=== PATIENT | male | born 2000 | race Caucasian/White ===

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

== ENCOUNTER → 2018-01-07 19:10 | Emergency (ER) | payer OTHER ==
[2018-01-07 19:16] VITALS: BP 154/94
== END | disposition left against medical advice (07) ==
LOC: ED 19:10
DX: Z02.83 Encounter for blood-alcohol and blood-drug test (principal)
CPT/HCPCS: 99282

== ENCOUNTER 2018-03-12 17:03 | Inpatient (IN) | payer OTHER ==
[2018-03-12 17:49] LABS: ABS Basophils 0.1 10^3/ul (0-0.2); ABS Eosinophils 0.1 10^3/ul (0-0.6); ABS Lymphocytes 3.9 10^3/ul (1.0-4.8); ABS Monocytes 1.3 10^3/ul (0-0.8); ABS Neutrophils 8.1 10^3/ul (1.5-7.7); ABS Nucleated RBC 0 10^3/ul; Hematocrit 37 % (42-52); Hemoglobin 12.3 g/dl (14.0-18.0); Lymphocyte % 28.9 % (25-47); Mean Corpuscular HGB Conc 33 g/dl (31-36); Mean Corpuscular Hemoglobin 27 pg (27-31); Mean Corpuscular Volume 82 fL (80-94); Mean Platelet Volume 7.3 um3 (7.4-10.4); Nucleated Red Blood Cells % 0.1; Platelet Count 310 10^3/ul (150-450); Red Cell Distribution Width 14 % (10.5-15); White Blood Count 13.5 10^3/ul (3.5-10.8)
--- NOTE | 2018-03-12 21:50 | ED ---
Psychiatric Complaint - HPI Summary HPI Summary: This patient is a 18 year old M presenting to [facility] with a chief complaint of SI/substance abuse since 03/10/18. Pt was an IV heroin and IV meth user for 4.5 to 5 years, but was clean for the past 2 months. Within last the last 2 days he relapsed and has been using both drugs. His mother told police he was threatening to kill himself, but he denies HI, SI; he told his parents that he would "hurt himself, but not kill himself". He denies hallucinations, CP, and fever. PMHx anxiety rx Xanax, reach clinic 1-2 a week for rx suboxone. Pt denies EtOH use, endorses smoking, and endorses occasional marijuana use. This pt lives with his mother. - History Of Current Complaint Chief Complaint: EDMentalHealth Time Seen by Provider: 03/12/18 17:31 Hx Obtained From: Patient Onset/Duration: Sudden Onset Timing: Constant Severity Initially: Moderate Severity Currently: Mild Aggravating Factor(s): Recent Stress - relapsing, Drug Use - Meth and heroin, both IV Alleviating Factor(s): Nothing Has Suicidal: Reports: Thoughts - He denies, others endorse Has Homicidal: Denies: Thoughts Recent Stressor(s): relapse - Allergies/Home Medications Allergies/Adverse Reactions: Allergies Allergy/AdvReac Type Severity Reaction Status Date / Time bee venom protein (honey bee) Allergy Hives Verified 01/07/18 19:55 Home Medications: Home Medications Buprenorphine HCl/Naloxone HCl [Suboxone] 1 film SL DAILY 03/12/18 [History Confirmed 03/12/18] Escitalopram (NF) [Lexapro 20 mg (NF)] 20 mg PO DAILY 03/12/18 [History Confirmed 03/12/18] PMH/Surg Hx/FS Hx/Imm Hx Endocrine/Hematology History: Denies: Hx Diabetes, Hx Thyroid Disease Cardiovascular History: Denies: Hx Hypertension Respiratory History: Denies: Hx Asthma, Hx Chronic Obstructive Pulmonary Disease (COPD) GI History: Denies: Hx Ulcer Sensory History: Denies: Hx Legally Blind, Hx Deafness Opthamlomology History: Denies: Hx Legally Blind EENT History: Denies: Hx Deafness Neurological History: Denies: Hx Dementia Psychiatric History: Reports: Hx Anxiety, Hx Depression Denies: Hx Eating Disorder, Hx of Violent Episodes Against Others - Surgical History Surgery Procedure, Year, and Place: DENTAL Infectious Disease History: No Infectious Disease History: Denies: Hx Hepatitis, Hx Human Immunodeficiency Virus (HIV), History Other Infectious Disease, Traveled Outside the [place] in Last 30 Days - Family History Known Family History: Negative: Respiratory Disease - Social History Occupation: Employed Full-time Lives: With Family Alcohol Use: None Substance Use Type: Reports: Heroin, Marijuana Smoking Status (MU): Heavy Every Day Tobacco Smoker Have You Smoked in the Last Year: No Review of Systems Negative: Fever, Chills Negative: Erythema Negative: Sore Throat Negative: Chest Pain Negative: Shortness Of Breath, Cough Negative: Abdominal Pain, Vomiting, Nausea Negative: dysuria, flank pain Negative: Myalgia, Edema Positive: Other - diffuse scabs and abrasions. Negative: Rash Neurological: Other - NEGATIVE: Dizziness Positive: Depressed, Other - SIB All Other Systems Reviewed And Are Negative: Yes Physical Exam - Summary Physical Exam Summary: Constitutional: Well-developed, Well-nourished, Alert. (-) Distressed Skin: Warm, Dry. Multiple meth scabs on his face and posterior neck HENT: Normocephalic; Atraumatic Eyes: Conjunctiva normal Neck: Musculoskeletal ROM normal neck. (-) JVD, (-) Stridor, (-) Tracheal deviation Cardio: Rhythm regular, rate normal, Heart sounds normal; Intact distal pulses; The pedal pulses are 2+ and symmetric. Radial pulses are 2+ and symmetric. (-) Murmur Pulmonary/Chest wall: Effort normal. (-) Respiratory distress, (-) Wheezes, (-) Rales Abd: Soft, (-) epigastric tenderness, (-) Distension, (-) Guarding, (-) Rebound Musculoskeletal: (-) Edema Lymph: (-) Cervical adenopathy Neuro: Alert, Oriented x3 Psych: Mood and affect Normal Triage Information Reviewed: Yes Vital Signs On Initial Exam: Initial Vitals Temp Pulse Resp BP Pulse Ox 98.2 F 89 17 106/64 98 03/12/18 17:20 03/12/18 17:20 03/12/18 17:20 03/12/18 17:20 03/12/18 17:20 Vital Signs Reviewed: Yes Diagnostics - Vital Signs Vital Signs Temp Pulse Resp BP Pulse Ox 03/12/18 19:00 85 29 99 03/12/18 18:00 68 23 97 03/12/18 17:36 96 13 127/80 98 03/12/18 17:35 26 03/12/18 17:20 98.2 F 89 17 106/64 98 - Laboratory Lab Results: Lab Results 03/12/18 03/12/18 Range/Units 17:40 17:40 WBC 13.5 H (3.5-10.8) 10^3/ul RBC 4.50 (4.00-5.40) 10^6/ul Hgb 12.3 L (14.0-18.0) g/dl Hct 37 L (42-52) % MCV 82 (80-94) fL MCH 27 (27-31) pg MCHC 33 (31-36) g/dl RDW 14 (10.5-15) % Plt Count 310 (150-450) 10^3/ul MPV 7.3 L (7.4-10.4) um3 Neut % (Auto) 60.3 (38-83) % Lymph % (Auto) 28.9 (25-47) % [place] % (Auto) 9.3 H (0-7) % Eos % (Auto) 1.0 (0-6) % Baso % (Auto) 0.5 (0-2) % Absolute Neuts (auto) 8.1 H (1.5-7.7) 10^3/ul Absolute Lymphs (auto) 3.9 (1.0-4.8) 10^3/ul Absolute Monos (auto) 1.3 H (0-0.8) 10^3/ul Absolute Eos (auto) 0.1 (0-0.6) 10^3/ul Absolute Basos (auto) 0.1 (0-0.2) 10^3/ul Absolute Nucleated RBC 0 10^3/ul Nucleated RBC % 0.1 Sodium 135 (135-145) mmol/L Potassium 4.0 (3.5-5.0) mmol/L Chloride 102 (101-111) mmol/L Carbon Dioxide 29 (22-32) mmol/L Anion Gap 4 (2-11) mmol/L BUN 19 (6-24) mg/dL Creatinine 0.89 (0.67-1.17) mg/dL Est GFR ( Amer) 131.9 (>60) Est GFR (Non-Af Amer) 109.0 (>60) BUN/Creatinine Ratio 21.3 H (8-20) Glucose 89 (70-100) mg/dL Calcium 9.2 (8.6-10.3) mg/dL Total Bilirubin 0.40 (0.2-1.0) mg/dL AST 36 (13-39) U/L ALT 33 (7-52) U/L Alkaline Phosphatase 101 (34-104) U/L Total Protein 7.0 (6.4-8.9) g/dL Albumin 3.9 (3.2-5.2) g/dL Globulin 3.1 (2-4) g/dL Albumin/Globulin Ratio 1.3 (1-3) TSH 3.12 (0.34-5.60) mcIU/mL Salicylates < 2.50 (<30) mg/dL Acetaminophen < 15 mcg/mL Serum Alcohol < 10 (<10) mg/dL Result Diagrams: 03/12/18 17:40 03/12/18 17:40 Lab Statement: Any lab studies that have been ordered have been reviewed, and results considered in the medical decision making process. Course/Dx - Course Course Of Treatment: A 18-year-old M presents to the ED with a CC of SIB/ relapse since 2 days ago. (+) SI per mother. (-) he denies SI/HI, hallucinations , CP, and fever. Pt is an addict of meth and heroin, both used IV for nearly 5 years. He was clean for 2 months until 2 days ago when he relapsed. His mother called the police because the pt said he would hurt himself. Pt's labs show abnl WBC, H&H, MVC, mono %, abs neuts, and abs monos. - Differential Dx/Clinical Impression Provider Diagnosis: Suicidal ideation - Physician Notifications Discussed Care Of Patient With: Pepe Hilton Time Discussed With Above Provider: 22:01 Instructed by Provider To: Other - Pt will be admitted on involuntary status with a dx of SI. Discharge - Sign-Out/Discharge Documenting (check all that apply): Patient Departure - admit - Discharge Plan Condition: Fair Disposition: PSYCHIATRIC FACILITY-[facility] [place] Referrals: Andrea Galvan MD [Primary Care Provider] - - Attestation Statements Document Initiated by Scribe: Yes Documenting Scribe: Juan C Bautista Provider For Whom Scribe is Documenting (Include Credential): Dr. Pedro Early MD Scribe Attestation: Juan C Chris, scribed for Dr. Pedro Early MD on 03/12/18 at 2208.
[2018-03-12 22:51] LABS: Urine Appearance Clear; Urine Blood Negative (Negative); Urine Color Straw; Urine Ketones Negative (Negative); Urine Protein Negative (Negative); Urine Specific Gravity 1.006 (1.010-1.030); Urine Urobilinogen Negative (Negative)
[2018-03-13] MEDS ORDERED: Acetaminophen TAB* 325 MG PO PRN (03:19)
[2018-03-13] MEDS ORDERED: Al Hydrox/Mg Hydrox/Simet LIQ* 30 ML UDC PO PRN (03:19)
[2018-03-13] MEDS ORDERED: Mouth Piece, Nicotine* 1 EACH CARTRIDGE INH SCH (03:19)
[2018-03-13] MEDS ORDERED: Nicotine GUM* 2 MG PO PRN (03:19)
[2018-03-13] MEDS: Vitamin THERAPEUTIC TAB PO SCH (11:04)
[2018-03-13] MEDS ORDERED: hydrOXYzine HCL TAB* 50 MG PO PRN (12:31)
--- NOTE | 2018-03-13 14:12 | HP ---
H&P (Free Text) History and Physical: JUSTIFICATION FOR ADMISSION: Patient presented to emergency room with suicidal ideation, worsening depression and substance abuse. He requires inpatient psychiatric admission in order to provide treatment and stabilization as he is a danger to himself. CHIEF COMPLAINT: "I have been depressed after my friend but I will not kill myself SOURCE OF INFORMATION: Chart, patient HISTORY OF THE PRESENT ILLNESS: Patient is a 18 y/o male, single, living by himself in a camper, employed as a bonilla, with history of anxiety disorder and substance abuse. Patient was admitted to inpatient unit for worsening of depression, emotional dysregulation , and sleep disturbance leading to relapse. Patient relapsed on Heroin and Methamphetamine and also forged a check from his [employer] company. Patient rationalizes that he was not being paid for some time despite of him working at the [employer]. Patients Boss called police and when police came to get him he ran in the dark to [place] and said "I might as well kill myself and be done with this mess. Patient was compliant with his medications until a week ago and has been abusing drugs likely since then and relapsed after 2 months of sobriety. Patient reportedly filled his Suboxone of 12-3 mg a day on 03/06/18 for 14 days but stated that he has not used it for about a week ago. Patient last dose of Heroin was yesterday and Amphetamine day before that. Patient reportedly has been struggling with his abstinence every 1-2 months where he relapses but sometimes is able to get back on track towards sobriety. But this time he was unable to stop due to the level of his emotional pain. Patient reported no manic or psychotic symptoms other than when under influence of substances. Patient denied any suicidal or homicidal ideation on the unit, feels safe in the hospital agree to go to a rehab. Patient continued to exhibit behavior that is in control and cooperative with staff. PAST PSYCHIATRIC HISTORY: Patient reports no history of inpatient psychiatric hospitalization but do report having inpatient rehab of 28 days more than a year ago and was able to keep sobriety for 3 months following that. Patient reports periods of sobriety that will last for about a month or two with relapse and then will recover after couple of day. Patient reports attending AA meeting and has been going to [facility] for substance use treatment and anxiety. Patient reports getting Suboxone 12-3mg daily and Lexapro 20 mg a day (anxiety and depression). Patient has history of suicidal thoughts but no attempt or plan. Patient has no history of homicidal threats, intent or attempt. Patient reports no history of aggressive and agitated behavior when decompensates. Patient reports he does not have access to firearm as they are his fathers and his father has the possession. Although documentation in ED reports that he has 2 firearms. Patient has two legal charges for which he has to appear in court next week. SUBSTANCE ABUSE HISTORY: Patient started using in his late teenage years. Patient started with Cocaine then Methamphetamine and Opioids. Patient uses Heroin and Amphetamine. Patient reports using Amphetamine 3x this year and last use was about 2 days ago. Patient also reports history of using IV Heroin unspecified amount since relapse and last use was yesterday. Urine toxicology was positive for amphetamine and opioid. Patient has been in both inpatient and outpatient treatment for drugs. Patient reports smoking 1 PPD of tobacco. PAST MEDICAL HISTORY: No active medical problems other than skin lesions due to substance abuse ALLERGIES: Bee Venom FAMILY PSYCHIATRIC HISTORY: Patient reports having history of Depression in his mother. Denies any other illness or substance abuse in family. No reported suicide in the family. As per records patient has documented history in family of alcohol use and Bipolar Disorder. FAMILY/PSYCHOSOCIAL HISTORY: Patient currently lives by himself in a camper. Patient is not . Patient has no children. Patient education level is a year in College with major of Biotechnology. Patient was raised by his mother growing up father had limited involvement in his up bringing as per patient. Patient reports that he has estranged relationship with his father and gets into argument with him every time they meet. Patient has 2 other sibling sisters that are are nurses as per patient. Patient support system includes mother that he feels is very strict but in a "reasonable way" and his friends. REVIEW OF SYSTEMS: Patients review of symptoms was negative for any physical complaint. Patients vital signs were reviewed and has some high blood pressure likely due to withdrawal from opioids. Patients ED physical exam was reviewed which is grossly normal with no active medical problem. Physical Exam Summary: Constitutional: Well-developed, Well-nourished, Alert. (-) Distressed Skin: Warm, Dry. Multiple meth scabs on his face and posterior neck HENT: Normocephalic; Atraumatic Eyes: Conjunctiva normal Neck: Musculoskeletal ROM normal neck. (-) JVD, (-) Stridor, (-) Tracheal deviation Cardio: Rhythm regular, rate normal, Heart sounds normal; Intact distal pulses; The pedal pulses are 2+ and symmetric. Radial pulses are 2+ and symmetric. (-) Murmur Pulmonary/Chest wall: Effort normal. (-) Respiratory distress, (-) Wheezes, (-) Rales Abd: Soft, (-) epigastric tenderness, (-) Distension, (-) Guarding, (-) Rebound Musculoskeletal: (-) Edema Lymph: (-) Cervical adenopathy Neuro: Alert, Oriented x3 MENTAL STATUS EXAMINATION: Appearance: Patient is a 18 y/o young male, appear stated age, multiple methamphetamine related skin sores and mites over his face, neck and arm, making limited eye contact, poor hygiene and grooming. Behavior: in fair control in the hospital Gait: normal Abnormal motor activity: none Speech: normal rate and rhythm, anxious pauses, normal tone and volume Mood: emotional Affect: Dysphoric, constricted Thought process: coherent to circumstantial Thought Content: Suicidal/Homicidal ideation: denied at the time of evaluation but as per recent evidence made suicidal statements Delusions: none Obsessions: none Phobia: none Perceptual disturbance: none Attention: fair Orientation: grossly intact Concentration: limited Memory: fair Insight: poor Judgment: poor Impulse control: poor IMPRESSION: Patient with history of Substance Use Disorder, Depression and anxiety. Patient currently admitted due to worsening of his depression, relapse on substance abuse including heroin and methamphetamine. Patient has also struggled with recent loss of his friend that has likely triggered relapse. Patient is a danger to self and others if discharged hence will be stabilized on inpatient unit with medication adjustments and therapy. DIAGNOSES: Depressive Disorder unspecified, Anxiety Disorder unspecified, Opioid Use Disorder, Methamphetamine abuse Prov: Adjustment Disorder, Major depression, Substance Induced Depression and anxiety PLAN: Admit to [facility] on Q 15 min observation. Patient is full code. Patient is on involuntary admission status Integrate patient into the milieu Individual and group psychotherapy Social work consult for therapy and discharge planning Patient gave informed consent to start the following medications: Patients was started back on Suboxone but at a low dose 4-2 mg a day with plan to follow up with cravings and urges of opioids. Patient was also started on Remeron 15 mg PO QHS to help with depression and anxiety. Will obtain baseline lipid profile. Will file for [facility] while patient in the hospital with further collateral. Also continue with Hydroxyzine 50 mg Q6HRS PRN for anxiety and Tylenol for Pain. Will continue to monitor and f/u for improvement and side effects. Arlene Lerma MD Attending Psychiatrist
[2018-03-13] MEDS: Buprenorphine/Naloxone 8-2 MG SL TAB* 1 TAB PO SCH (15:12)
[2018-03-13] MEDS: Nicotine Inhaler* 10 MG AMP INH PRN ×2 (15:13→21:57)
[2018-03-13] MEDS: Bacitracin OINTMENT* 0.5% 0.5 oz TUBE TOPICAL SCH (21:56)
[2018-03-13] MEDS: Mirtazapine TAB* 15 MG PO SCH (21:56)
[2018-03-14] MEDS: Buprenorphine/Naloxone 8-2 MG SL TAB* 1 TAB PO SCH (10:47)
[2018-03-14] MEDS: Vitamin THERAPEUTIC TAB PO SCH (10:48)
[2018-03-14] MEDS: Bacitracin OINTMENT* 0.5% 0.5 oz TUBE TOPICAL SCH ×2 (10:48→22:44)
--- NOTE | 2018-03-14 11:01 | PN ---
Subjective - Subjective Date of Service: 03/14/18 Service Type: [id number] Hosp care 15 min low complexity Subjective: Patient was seen by self, discussed with treatment team, chart was reviewed. Patient has been compliant with his medications, no reported side effects. Patient reports limited improvement in his craving, urges and withdrawal related symptoms from opioids. Patient endorsed continued feeling depressed, isolateive and withdrawn wiht limited interest in things around him. Patient adamantly denies any suicidal ideation symptoms and is also in denial of making any statement before hospitalization as well. Patient sleeping has been disturbed and got only about 4 hours last night. Patient eating has been fair. Patient has been cooperative with staff. Patient behavior has been in control. Patient mood continued to be anxious and dysphoric and requested increment in Suboxone. Patient has been reporting no homicidal ideation. No psychotic symptoms of delusions or hallucinations. Patient talked about his interest in [facility] some where in [place] and will be educated by psychosocial rehabilitation counselor on all practical options available. Patient was ambivalent and also focused on his discharge planning and how "quick can I be discharged". Objective - Appearance Appearance: Other - face and extremeties occupied with sore from meth and going through some withdrawal Dysmorphic Features: No Hygiene: Normal Grooming: Disheveled - Behavior Psychomotor Activities: Abnormal-Increased Exhibits Abnormal Movement: No - Attitude and Relatedness Attitude and Relatedness: Superficially Cooperative Eye Contact: Fair - Speech Quality: Unpressured Latencies: Normal Quantity: Terse - Mood Patient's Decription of Mood: "Anxious" - Affect Observed Affect: Depressed Affect Consistent with: Dysphoria - Thought Process Patient's Thought Process: Goal Directed Thought Content: Yes Passive Wish - and occupied with discharge planning and his admission status, No Suicidal Planning, No Homicidal Ideation, No Paranoid Ideation - Sensorium Experiencing Hallucinations: No, Sensorium is Clear Type of Hallucinations: Visual: No, Auditory: No, Command: No - Level of Consciousness Level of Consciousness: Alert Orientation: Yes Intact, Yes Orientated to Time, Yes Orientated to Place, Yes Orientated to Person - Impulse Control Impulse Control: Intact - Insight and Judgement Insight and Judgement: Fair - Group Participation Particating in Group Activities: No - Medication Management Medication Management Adherence: Yes Assessment - Assessment Merits Inpatient Hospitalization: For Immediate Safety, For Stabilization, For Discharge Planning Inpatient DSM-V Dx: F33.8 Clinical Impression: Patient with history of Substance Use Disorder, Depression and anxiety. Patient currently admitted due to worsening of his depression, relapse on substance abuse including heroin and methamphetamine. Patient has also struggled with recent loss of his friend that has likely triggered relapse. Patient is a danger to self and others if discharged hence will be stabilized on inpatient unit with medication adjustments and therapy. Plan - Plan Treatment Plan: Name: AYAKA SNOWDEN Birthdate: 2000 [id number] - Patient continues to be hospitalized due to recent suicidal thoughts, mood instability, depression, anxiety and impulsivity and relapse on substance abuse. - Patient's medications were adjusted after informed consent with increment of Suboxone to 8 mg a day with intent to increase to 12 mg a day which was his outpatient dose as needed and tolerated. Patient will be continued on Remeron 15 mg PO HS fro depression and sleep. Patient also educated about sleep hygiene. Patient has PRN Hydroxyzine to help with anxiety and sleep. - Patient will be monitored for improvement and side effects. Risk and benefits were discussed. - Patient was encouraged to continue his participation in the milieu, group and individual therapy. Medications: Current Medications Acetaminophen (Tylenol Tab*) 650 mg PO Q4H PRN PRN Reason: PAIN or TEMP > 101 F Al Hydrox/Mg Hydrox/Simethicone (Maalox Plus*) 30 ml PO Q4H PRN PRN Reason: INDIGESTION Bacitracin (Bacitracin Ointment*) 1 applic TOPICAL BID [facility] Last Admin: 03/14/18 10:48 Dose: Not Given Buprenorphine/Naloxone (Suboxone 8-2 Mg Sl Tab*) 0.5 tab.sl PO DAILY [facility] Last Admin: 03/14/18 10:47 Dose: 0.5 tab.sl Device (Nicotine Mouth Piece*) 1 each INH .[facility] Hydroxyzine HCl (Atarax Tab*) 50 mg PO Q6H PRN PRN Reason: ANXIETY Mirtazapine (Remeron Tab*) 15 mg PO BEDTIME [facility] Last Admin: 03/13/18 21:56 Dose: 15 mg Multivitamins (Theragran Tab*) 1 tab PO DAILY [facility] Last Admin: 03/14/18 10:48 Dose: 1 tab Nicotine (Nicotine Inhaler*) 10 mg INH Q2H PRN PRN Reason: CRAVING Last Admin: 09/27/18 21:57 Dose: 10 mg Nicotine Polacrilex (Nicotine Gum*) 2 mg PO Q2H PRN PRN Reason: CRAVING
[2018-03-14] MEDS ORDERED: Buprenorphine/Naloxone 8-2 MG SL TAB* 1 TAB PO ONE ×2 (11:27→20:00)
[2018-03-14] MEDS: Mirtazapine TAB* 15 MG PO SCH (20:25)
[2018-03-15] MEDS: Vitamin THERAPEUTIC TAB PO SCH (09:39)
[2018-03-15] MEDS: Buprenorphine/Naloxone 8-2 MG SL TAB* 1 TAB PO SCH (09:39)
[2018-03-15] MEDS: Bacitracin OINTMENT* 0.5% 0.5 oz TUBE TOPICAL SCH ×2 (09:39→19:51)
--- NOTE | 2018-03-15 13:36 | PN ---
Subjective - Subjective Date of Service: 03/15/18 Service Type: [id number] Hosp care 15 min low complexity Subjective: Ricky is seen in weekend coverage for Dr. Lerma. He denies SI and is feeling more comfortable since the resumption of buprenorphine therapy. He continues to have difficulty sleeping though and requests an increase in prn hydroxyzine for this issue. As per staff, he has been calm and adherent with unit expectations and they feel he would be safe receiving enhanced privileges, such as use of the computer and staff pass, which he is requesting. He presents as polite and cooperative. Objective - Appearance Appearance: Well Developed/Nourished Dysmorphic Features: No Hygiene: Normal Grooming: Well Kept - Behavior Psychomotor Activities: Normal Exhibits Abnormal Movement: No - Attitude and Relatedness Attitude and Relatedness: Cooperative Eye Contact: Fair - Speech Quality: Unpressured Latencies: Normal Quantity: Appropriate - Mood Patient's Decription of Mood: "Okay" - Affect Observed Affect: Fair Affect Consistent with: Euthymia - Thought Process Patient's Thought Process: Coherent Thought Content: No Passive Wish, No Suicidal Planning, No Homicidal Ideation, No Paranoid Ideation - Sensorium Experiencing Hallucinations: No, Sensorium is Clear Type of Hallucinations: Visual: No, Auditory: No, Command: No - Level of Consciousness Level of Consciousness: Alert Orientation: Yes Intact, Yes Orientated to Time, Yes Orientated to Place, Yes Orientated to Person - Impulse Control Impulse Control: Tenuous - Insight and Judgement Insight and Judgement: Fair - Group Participation Particating in Group Activities: Yes - Medication Management Medication Management Adherence: Yes Assessment - Assessment Merits Inpatient Hospitalization: Consolidate Improvements, Pending Safe DC Plan Inpatient DSM-V Dx: F33.8 Clinical Impression: Patient with history of Substance Use Disorder, Depression and anxiety. Patient currently admitted due to worsening of his depression, relapse on substance abuse including heroin and methamphetamine. Patient has also struggled with recent loss of his friend that has likely triggered relapse. Patient is a danger to self and others if discharged hence will be stabilized on inpatient unit with medication adjustments and therapy. Plan - Plan Treatment Plan: Name: AYAKA SNOWDEN Birthdate: 2000 [id number] The patient is on buprenorphine/naloxone 8/2mg SL qday, as well as mirtazapine 15mg PO qhs. He appears to be improving. Continue inpatient level care and encourage consideration for substance abuse treatment after discharge. Continued Medication Management: Start Medication Medications: Current Medications Acetaminophen (Tylenol Tab*) 650 mg PO Q4H PRN PRN Reason: PAIN or TEMP > 101 F Al Hydrox/Mg Hydrox/Simethicone (Maalox Plus*) 30 ml PO Q4H PRN PRN Reason: INDIGESTION Bacitracin (Bacitracin Ointment*) 1 applic TOPICAL BID [facility] Last Admin: 03/15/18 09:39 Dose: Not Given Buprenorphine/Naloxone (Suboxone 8-2 Mg Sl Tab*) 1 tab.sl PO DAILY [facility] Last Admin: 03/15/18 09:39 Dose: 1 tab.sl Device (Nicotine Mouth Piece*) 1 each INH .[facility] Hydroxyzine HCl (Atarax Tab*) 75 mg PO Q6H PRN PRN Reason: ANXIETY Mirtazapine (Remeron Tab*) 15 mg PO BEDTIME [facility] Last Admin: 03/14/18 20:25 Dose: 15 mg Multivitamins (Theragran Tab*) 1 tab PO DAILY [facility] Last Admin: 03/15/18 09:39 Dose: 1 tab Nicotine (Nicotine Inhaler*) 10 mg INH Q2H PRN PRN Reason: CRAVING Last Admin: 03/13/18 21:57 Dose: 10 mg Nicotine Polacrilex (Nicotine Gum*) 2 mg PO Q2H PRN PRN Reason: CRAVING - Discharge Plan Discharge Plan: Inpatient Hospitalization Lab Results - Lab Results Lab Results: 03/12/18 03/12/18 03/12/18 17:40 17:40 22:30 WBC 13.5 H RBC 4.50 Hgb 12.3 L Hct 37 L MCV 82 MCH 27 MCHC 33 RDW 14 Plt Count 310 MPV 7.3 L Neut % (Auto) 60.3 Lymph % (Auto) 28.9 [place] % (Auto) 9.3 H Eos % (Auto) 1.0 Baso % (Auto) 0.5 Absolute Neuts (auto) 8.1 H Absolute Lymphs (auto) 3.9 Absolute Monos (auto) 1.3 H Absolute Eos (auto) 0.1 Absolute Basos (auto) 0.1 Absolute Nucleated RBC 0 Nucleated RBC % 0.1 Sodium 135 Potassium 4.0 Chloride 102 Carbon Dioxide 29 Anion Gap 4 BUN 19 Creatinine 0.89 Est GFR ( Amer) 131.9 Est GFR (Non-Af Amer) 109.0 BUN/Creatinine Ratio 21.3 H Glucose 89 Hemoglobin A1c Calcium 9.2 Total Bilirubin 0.40 AST 36 ALT 33 Alkaline Phosphatase 101 Total Protein 7.0 Albumin 3.9 Globulin 3.1 Albumin/Globulin Ratio 1.3 Triglycerides Cholesterol LDL Cholesterol HDL Cholesterol TSH 3.12 Urine Color Straw Urine Appearance Clear Urine pH 6.0 Ur Specific [place] 1.006 L Urine Protein Negative Urine Ketones Negative Urine Blood Negative Urine Nitrate Negative Urine Bilirubin Negative Urine Urobilinogen Negative Ur Leukocyte Esterase Negative Urine Glucose Negative Salicylates < 2.50 Urine Opiates Screen Acetaminophen < 15 Ur Barbiturates Screen Ur Phencyclidine Scrn Ur Amphetamines Screen U Benzodiazepines Scrn Urine Cocaine Screen U Cannabinoids Screen Serum Alcohol < 10 03/12/18 03/14/18 03/14/18 22:30 07:44 07:44 WBC RBC Hgb Hct MCV MCH MCHC RDW Plt Count MPV Neut % (Auto) Lymph % (Auto) [place] % (Auto) Eos % (Auto) Baso % (Auto) Absolute Neuts (auto) Absolute Lymphs (auto) Absolute Monos (auto) Absolute Eos (auto) Absolute Basos (auto) Absolute Nucleated RBC Nucleated RBC % Sodium Potassium Chloride Carbon Dioxide Anion Gap BUN Creatinine Est GFR ( Amer) Est GFR (Non-Af Amer) BUN/Creatinine Ratio Glucose Hemoglobin A1c 5.6 Calcium Total Bilirubin AST ALT Alkaline Phosphatase Total Protein Albumin Globulin Albumin/Globulin Ratio Triglycerides 79 Cholesterol 165 LDL Cholesterol 106 HDL Cholesterol 43.4 TSH Urine Color Urine Appearance Urine pH Ur Specific [place] Urine Protein Urine Ketones Urine Blood Urine Nitrate Urine Bilirubin Urine Urobilinogen Ur Leukocyte Esterase Urine Glucose Salicylates Urine Opiates Screen Presumptive positive A Acetaminophen Ur Barbiturates Screen None detected Ur Phencyclidine Scrn None detected Ur Amphetamines Screen Presumptive positive A U Benzodiazepines Scrn None detected Urine Cocaine Screen None detected U Cannabinoids Screen None detected Serum Alcohol
[2018-03-15] MEDS: Nicotine Inhaler* 10 MG AMP INH PRN (19:49)
[2018-03-15] MEDS: Mirtazapine TAB* 15 MG PO SCH (20:17)
[2018-03-16] MEDS: Vitamin THERAPEUTIC TAB PO SCH (09:34)
[2018-03-16] MEDS: Bacitracin OINTMENT* 0.5% 0.5 oz TUBE TOPICAL SCH ×2 (09:34→21:08)
[2018-03-16] MEDS: Buprenorphine/Naloxone 8-2 MG SL TAB* 1 TAB PO SCH (09:34)
[2018-03-16] MEDS: Mirtazapine TAB* 15 MG PO SCH (20:16)
[2018-03-17] MEDS: Vitamin THERAPEUTIC TAB PO SCH (09:37)
[2018-03-17] MEDS: Bacitracin OINTMENT* 0.5% 0.5 oz TUBE TOPICAL SCH ×2 (09:37→20:23)
[2018-03-17] MEDS: Buprenorphine/Naloxone 8-2 MG SL TAB* 1 TAB PO SCH (09:38)
[2018-03-17] MEDS ORDERED: Buprenorphine TAB* 2 MG TAB.SL SL ONE (10:51)
--- NOTE | 2018-03-17 11:00 | PN ---
Subjective - Subjective Date of Service: 03/17/18 Service Type: 20070 Hosp care 15 min low complexity Subjective: Patient was seen by self, discussed with treatment team, chart was reviewed. Patient has been compliant with his medications other than he refused to take Suboxone yesterday and stated that he wants to "do it and go to rehab". Patient reports no reported side effects but appears to be in some what of withdrawal and offered low dose Buprenorphine one time today. Patient is attending therapy and participating in milieu and more out of room than before. Patient endorsed continued disturbance in sleep and fluctuating depression and anxiety, less isolative and seclusive. Patient denies any suicidal ideation and behavior has been safe on all checks. Patient eating has been fair. Patient has been cooperative with staff. Patient behavior has been in control. Patient mood continued to be anxious but less dysphoric. Patient has been reporting no homicidal ideation. No psychotic symptoms of delusions or hallucinations. Patient talked about his interest in going to inpatient rehab and is working with social sciences research scientist on that referral. Patient is motivated about his treatment. Objective - Appearance Appearance: Healthy Appearing Dysmorphic Features: No Hygiene: Normal - improving facial meth sores Grooming: Fairly Well Kept - Behavior Psychomotor Activities: Normal Exhibits Abnormal Movement: No - Attitude and Relatedness Attitude and Relatedness: Cooperative Eye Contact: Fair - Speech Quality: Unpressured Latencies: Normal Quantity: Appropriate - Mood Patient's Decription of Mood: "Anxious" - Affect Observed Affect: Tense Affect Consistent with: Dysphoria - less - Thought Process Patient's Thought Process: Coherent, Circumstantial Thought Content: No Passive Wish, No Suicidal Planning, No Homicidal Ideation, No Paranoid Ideation - Sensorium Experiencing Hallucinations: No, Sensorium is Clear Type of Hallucinations: Visual: No, Auditory: No, Command: No - Level of Consciousness Level of Consciousness: Alert Orientation: Yes Intact, Yes Orientated to Time, Yes Orientated to Place, Yes Orientated to Person - Impulse Control Impulse Control: Poor - but improving - Insight and Judgement Insight and Judgement: Fair - Group Participation Particating in Group Activities: Yes - Medication Management Medication Management Adherence: Yes Assessment - Assessment Merits Inpatient Hospitalization: For Immediate Safety, For Stabilization, For Discharge Planning Inpatient DSM-V Dx: F33.8 Clinical Impression: Patient with history of Substance Use Disorder, Depression and anxiety. Patient currently admitted due to worsening of his depression, relapse on substance abuse including heroin and methamphetamine. Patient has also struggled with recent loss of his friend that has likely triggered relapse. Patient is a danger to self and others if discharged hence will be stabilized on inpatient unit with medication adjustments and therapy. Plan - Plan Treatment Plan: Name: AYAKA SNOWDEN Birthdate: 2000 [id number] - Patient continues to be hospitalized due to recent suicidal thoughts, mood instability, depression, anxiety and impulsivity and relapse on substance abuse. - Patient's medications were adjusted was offered one dose of Suboxone 2 mg. Patient Remeron was increased to 30 mg PO HS for depression. anxiety and sleep. Patient also educated about sleep hygiene. Patient has PRN Hydroxyzine to help with anxiety and sleep. - Patient will be monitored for improvement and side effects. Risk and benefits were discussed. - Patient was encouraged to continue his participation in the milieu, group and individual therapy. Medications: Current Medications Acetaminophen (Tylenol Tab*) 650 mg PO Q4H PRN PRN Reason: PAIN or TEMP > 101 F Al Hydrox/Mg Hydrox/Simethicone (Maalox Plus*) 30 ml PO Q4H PRN PRN Reason: INDIGESTION Bacitracin (Bacitracin Ointment*) 1 applic TOPICAL BID [facility] Last Admin: 03/17/18 09:37 Dose: Not Given Buprenorphine HCl (Subutex Tab*) 2 mg SL ONCE ONE Stop: 03/17/18 10:52 Device (Nicotine Mouth Piece*) 1 each INH [facility] Hydroxyzine HCl (Atarax Tab*) 75 mg PO Q6H PRN PRN Reason: ANXIETY Mirtazapine (Remeron Tab*) 30 mg PO BEDTIME [facility] Multivitamins (Theragran Tab*) 1 tab PO DAILY [facility] Last Admin: 03/17/18 09:37 Dose: 1 tab Nicotine (Nicotine Inhaler*) 10 mg INH Q2H PRN PRN Reason: CRAVING Last Admin: 03/15/18 19:49 Dose: 10 mg Nicotine Polacrilex (Nicotine Gum*) 2 mg PO Q2H PRN PRN Reason: CRAVING
[2018-03-17] MEDS: hydrOXYzine HCL TAB* 25 MG PO PRN (20:23)
[2018-03-17] MEDS ORDERED: Mirtazapine TAB* 15 MG PO SCH (21:00)
[2018-03-18] MEDS: Vitamin THERAPEUTIC TAB PO SCH (10:33)
[2018-03-18] MEDS: Bacitracin OINTMENT* 0.5% 0.5 oz TUBE TOPICAL SCH ×2 (10:34→20:49)
--- NOTE | 2018-03-18 10:58 | PN ---
Subjective - Subjective Date of Service: 03/18/18 Service Type: [id number] Hosp care 15 min low complexity Subjective: Patient was seen by self, discussed with treatment team, chart was reviewed. Patient has been compliant with his medications. Patient reports worsening in racing thoughts after increment in Remeron and was unable to fall asleep. Patient was anxious and restless this morning but continues to report improvement in depression. Even though patient is willing to go to inpatient rehab but worries that if he would have to stay to long in the hospital for that. Patient was educated about acute treatment that is needed at the hospital before transferring him to inpatient rehab. Patient referrals has been made to inpatient rehab. about his Patient is attending therapy and participating in milieu and more out of room than before. Patient endorsed some improvement depression and anxiety, less isolative and seclusive. Patient denies any suicidal ideation and behavior has been safe on all checks. Patient eating has been fair. Patient has been cooperative with staff. Patient behavior has been in control. Patient mood continued to be anxious but less dysphoric. Patient has been reporting no homicidal ideation. No psychotic symptoms of delusions or hallucinations. Patient continues to show his interest in going to inpatient rehab to work on his substance abuse. Objective - Appearance Appearance: Healthy Appearing - improving meth sores Dysmorphic Features: No Hygiene: Normal Grooming: Fairly Well Kept - Behavior Psychomotor Activities: Abnormal-Increased Exhibits Abnormal Movement: No - Attitude and Relatedness Attitude and Relatedness: Cooperative Eye Contact: Fair - Speech Quality: Unpressured Latencies: Normal Quantity: Copious - Mood Patient's Decription of Mood: "Anxious" - Affect Observed Affect: Fair Affect Consistent with: Dysphoria - less - Thought Process Patient's Thought Process: Coherent, Circumstantial Thought Content: No Passive Wish, No Suicidal Planning, No Homicidal Ideation, No Paranoid Ideation - Sensorium Experiencing Hallucinations: No, Sensorium is Clear Type of Hallucinations: Visual: No, Auditory: No, Command: No - Level of Consciousness Orientation: Yes Intact, Yes Orientated to Time, Yes Orientated to Place, Yes Orientated to Person - Impulse Control Impulse Control: Impaired - but improving - Insight and Judgement Insight and Judgement: Impaired - but improving - Group Participation Particating in Group Activities: Yes - Medication Management Medication Management Adherence: Yes Assessment - Assessment Merits Inpatient Hospitalization: For Immediate Safety, For Stabilization, For Discharge Planning Inpatient DSM-V Dx: F33.8 Clinical Impression: Patient with history of Substance Use Disorder, Depression and anxiety. Patient currently admitted due to worsening of his depression, relapse on substance abuse including heroin and methamphetamine. Patient has also struggled with recent loss of his friend that has likely triggered relapse. Patient is a danger to self and others if discharged hence will be stabilized on inpatient unit with medication adjustments and therapy. Plan - Plan Treatment Plan: Name: AYAKA SNOWDEN Birthdate: 2000 [id number] - Patient continues to be hospitalized due to recent suicidal thoughts, mood instability, depression, anxiety and impulsivity and relapse on substance abuse. - Patient's medications were adjusted after informed consent with reduction in Remeron to 15 mg PO HS for depression. anxiety and sleep. Patient also educated about sleep hygiene and started on Seroquel 100 mg HS to address sleep and racing thoughts. Patient has PRN Hydroxyzine to help with anxiety and sleep. Patient is willing to attend rehab and team working on referrals to inpatient rehab. - Patient will be monitored for improvement and side effects. Risk and benefits were discussed. - Patient was encouraged to continue his participation in the milieu, group and individual therapy. Medications: Current Medications Acetaminophen (Tylenol Tab*) 650 mg PO Q4H PRN PRN Reason: PAIN or TEMP > 101 F Al Hydrox/Mg Hydrox/Simethicone (Maalox Plus*) 30 ml PO Q4H PRN PRN Reason: INDIGESTION Bacitracin (Bacitracin Ointment*) 1 applic TOPICAL BID [facility] Last Admin: 03/18/18 10:34 Dose: Not Given Device (Nicotine Mouth Piece*) 1 each INH .[facility] Hydroxyzine HCl (Atarax Tab*) 75 mg PO Q6H PRN PRN Reason: ANXIETY Last Admin: 03/17/18 20:23 Dose: 75 mg Mirtazapine (Remeron Tab*) 15 mg PO BEDTIME [facility] Multivitamins (Theragran Tab*) 1 tab PO DAILY [facility] Last Admin: 03/18/18 10:33 Dose: 1 tab Nicotine (Nicotine Inhaler*) 10 mg INH Q2H PRN PRN Reason: CRAVING Last Admin: 03/15/18 19:49 Dose: 10 mg Nicotine Polacrilex (Nicotine Gum*) 2 mg PO Q2H PRN PRN Reason: CRAVING Quetiapine Fumarate (Seroquel Tab*) 100 mg PO BEDTIME [facility]
[2018-03-18] MEDS: Mirtazapine TAB* 15 MG PO SCH (20:34)
[2018-03-18] MEDS: hydrOXYzine HCL TAB* 25 MG PO PRN (20:35)
[2018-03-18] MEDS ORDERED: QUEtiapine TAB* 100 MG PO SCH (21:00)
[2018-03-19] MEDS: Bacitracin OINTMENT* 0.5% 0.5 oz TUBE TOPICAL SCH ×2 (10:24→20:19)
[2018-03-19] MEDS: Vitamin THERAPEUTIC TAB PO SCH (10:24)
--- NOTE | 2018-03-19 11:32 | PN ---
Subjective - Subjective Date of Service: 03/19/18 Service Type: 38820 [facility] care 15 min low complexity Subjective: Patient was seen by self, discussed with treatment team, chart was reviewed. Patient has been compliant with his medications. Patient reports feeling restless last night and was unable to fall asleep until mid night and woke up little before 7 in the morning. Patient reportedly has been staying in his bed during the day reading book and was educated about sleep hygeine. Patient reports that he was on high dose of Seroquel in the past. Patient was less anxious and restless this morning and continues to report improvement in depression and his readiness for inpatient. Patient referrals has been made to inpatient rehab. Patient is attending therapy and participating in milieu and more out of room than before. Patient endorsed continued improvement in depression and anxiety, no suicidal and homicidal ideation. Patient eating has been fair. Patient has been cooperative with staff. Patient behavior has been in control. No psychotic symptoms of delusions or hallucinations. Patient continues to show his interest in going to inpatient rehab to work on his substance abuse. Objective - Appearance Appearance: Healthy Appearing Dysmorphic Features: No Hygiene: Normal Grooming: Fairly Well Kept - Behavior Psychomotor Activities: Normal Exhibits Abnormal Movement: No - Attitude and Relatedness Attitude and Relatedness: Cooperative Eye Contact: Fair - Speech Quality: Unpressured Latencies: Normal Quantity: Appropriate - Mood Patient's Decription of Mood: "Anxious" - Affect Observed Affect: Fair - Thought Process Patient's Thought Process: Coherent, Goal Directed Thought Content: No Passive Wish, No Suicidal Planning, No Homicidal Ideation, No Paranoid Ideation - Sensorium Experiencing Hallucinations: No, Sensorium is Clear Type of Hallucinations: Visual: No, Auditory: No, Command: No - Level of Consciousness Level of Consciousness: Alert Orientation: Yes Intact, Yes Orientated to Time, Yes Orientated to Place, Yes Orientated to Person - Impulse Control Impulse Control: Intact - Insight and Judgement Insight and Judgement: Fair - Group Participation Particating in Group Activities: Yes - Medication Management Medication Management Adherence: Yes Assessment - Assessment Merits Inpatient Hospitalization: For Immediate Safety, For Stabilization, For Discharge Planning Inpatient DSM-V Dx: F33.8 Clinical Impression: Patient with history of Substance Use Disorder, Depression and anxiety. Patient currently admitted due to worsening of his depression, relapse on substance abuse including heroin and methamphetamine. Patient has also struggled with recent loss of his friend that has likely triggered relapse. Patient is a danger to self and others if discharged hence will be stabilized on inpatient unit with medication adjustments and therapy. Plan - Plan Treatment Plan: Name: AYAKA SNOWDEN Birthdate: 2000 [id number] - Patient continues to be hospitalized due to recent suicidal thoughts, mood instability, depression, anxiety and impulsivity and relapse on substance abuse n process of being transferred to inpatient rehab. - Patient's medications were adjusted after informed consent with increment on Seroquel to 150 mg HS to address sleep and racing thoughts. Patient was continued on Remeron 15 mg PO HS for depression. anxiety and sleep. Patient also educated about sleep hygiene. Patient has PRN Hydroxyzine to help with anxiety and sleep. Patient is willing to attend rehab and team working on referrals to inpatient rehab. - Patient will be monitored for improvement and side effects. Risk and benefits were discussed. - Patient was encouraged to continue his participation in the milieu, group and individual therapy. Medications: Current Medications Acetaminophen (Tylenol Tab*) 650 mg PO Q4H PRN PRN Reason: PAIN or TEMP > 101 F Al Hydrox/Mg Hydrox/Simethicone (Maalox Plus*) 30 ml PO Q4H PRN PRN Reason: INDIGESTION Bacitracin (Bacitracin Ointment*) 1 applic TOPICAL BID [facility] Last Admin: 03/19/18 10:24 Dose: Not Given Device (Nicotine Mouth Piece*) 1 each INH .CARTRIDGE [facility] Hydroxyzine HCl (Atarax Tab*) 75 mg PO Q6H PRN PRN Reason: ANXIETY Last Admin: 03/18/18 20:35 Dose: 75 mg Mirtazapine (Remeron Tab*) 15 mg PO BEDTIME [facility] Last Admin: 03/18/18 20:34 Dose: 15 mg Multivitamins (Theragran Tab*) 1 tab PO DAILY [facility] Last Admin: 03/19/18 10:24 Dose: Not Given Nicotine (Nicotine Inhaler*) 10 mg INH Q2H PRN PRN Reason: CRAVING Last Admin: 03/15/18 19:49 Dose: 10 mg Nicotine Polacrilex (Nicotine Gum*) 2 mg PO Q2H PRN PRN Reason: CRAVING Quetiapine Fumarate (Seroquel Tab*) 150 mg PO BEDTIME [facility]
--- NOTE | 2018-03-19 14:09 | DS ---
Subjective - Subjective Service Types: [id number] [facility] Day Mgmt simple under 30 min Discharge Date: 03/20/18 Subjective: JUSTIFICATION FOR ADMISSION: Patient presented to emergency room with suicidal ideation, worsening depression and substance abuse. He requires inpatient psychiatric admission in order to provide treatment and stabilization as he is a danger to himself. CHIEF COMPLAINT: "I have been depressed after my friend but I will not kill myself SOURCE OF INFORMATION: Chart, patient HISTORY OF THE PRESENT ILLNESS: Patient is a 18 y/o male, single, living by himself in a camper, employed as a bonilla, with history of anxiety disorder and substance abuse. Patient was admitted to inpatient unit for worsening of depression, emotional dysregulation , and sleep disturbance leading to relapse. 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 Patient rationalizes that he was not being paid for some time despite of him working at the [employer]. Patients Boss called police and when police came to get him he ran in the dark to the [place] and said "I might as well kill myself and be done with this mess. Patient was compliant with his medications until a week ago and has been abusing drugs likely since then and relapsed after 2 months of sobriety. Patient reportedly filled his Suboxone of 12-3 mg a day on 03/06/18 for 14 days but stated that he has not used it for about a week ago. Patient last dose of Heroin was yesterday and Amphetamine day before that. Patient reportedly has been struggling with his abstinence every 1-2 months where he relapses but sometimes is able to get back on track towards sobriety. But this time he was unable to stop due to the level of his emotional pain. Patient reported no manic or psychotic symptoms other than when under influence of substances. Patient denied any suicidal or homicidal ideation on the unit, feels safe in the hospital agree to go to a rehab. Patient continued to exhibit behavior that is in control and cooperative with staff. PAST PSYCHIATRIC HISTORY: Patient reports no history of inpatient psychiatric hospitalization but do report having inpatient rehab of 28 days more than a year ago and was able to keep sobriety for 3 months following that. Patient reports periods of sobriety that will last for about a month or two with relapse and then will recover after couple of day. Patient reports attending AA meeting and has been going to [facility] for substance use treatment and anxiety. Patient reports getting Suboxone 12-3mg daily and Lexapro 20 mg a day (anxiety and depression). Patient has history of suicidal thoughts but no attempt or plan. Patient has no history of homicidal threats, intent or attempt. Patient reports no history of aggressive and agitated behavior when decompensates. Patient reports he does not have access to firearm as they are his fathers and his father has the possession. Although documentation in ED reports that he has 2 firearms. Patient has two legal charges for which he has to appear in court next week. SUBSTANCE ABUSE HISTORY: Patient started using in his late teenage years. Patient started with Cocaine then Methamphetamine and Opioids. Patient uses Heroin and Amphetamine. Patient reports using Amphetamine 3x this year and last use was about 2 days ago. Patient also reports history of using IV Heroin unspecified amount since relapse and last use was yesterday. Urine toxicology was positive for amphetamine and opioid. Patient has been in both inpatient and outpatient treatment for drugs. Patient reports smoking 1 PPD of tobacco. PAST MEDICAL HISTORY: No active medical problems other than skin lesions due to substance abuse ALLERGIES: [employer] FAMILY PSYCHIATRIC HISTORY: Patient reports having history of Depression in his mother. Denies any other illness or substance abuse in family. No reported suicide in the family. As per records patient has documented history in family of alcohol use and Bipolar Disorder. FAMILY/PSYCHOSOCIAL HISTORY: Patient currently lives by himself in a camper. Patient is not . Patient has no children. Patient education level is a year in College with major of Biotechnology. Patient was raised by his mother growing up father had limited involvement in his up bringing as per patient. Patient reports that he has estranged relationship with his father and gets into argument with him every time they meet. Patient has 2 other sibling sisters that are are nurses as per patient. Patient support system includes mother that he feels is very strict but in a "reasonable way" and his friends. REVIEW OF SYSTEMS: Patients review of symptoms was negative for any physical complaint. Patients vital signs were reviewed and has some high blood pressure likely due to withdrawal from opioids. Patients ED physical exam was reviewed which is grossly normal with no active medical problem. Physical Exam Summary: Constitutional: Well-developed, Well-nourished, Alert. (-) Distressed Skin: Warm, Dry. Multiple meth scabs on his face and posterior neck HENT: Normocephalic; Atraumatic Eyes: Conjunctiva normal Neck: Musculoskeletal ROM normal neck. (-) JVD, (-) Stridor, (-) Tracheal deviation Cardio: Rhythm regular, rate normal, Heart sounds normal; Intact distal pulses; The pedal pulses are 2+ and symmetric. Radial pulses are 2+ and symmetric. (-) Murmur Pulmonary/Chest wall: Effort normal. (-) Respiratory distress, (-) Wheezes, (-) Rales Abd: Soft, (-) epigastric tenderness, (-) Distension, (-) Guarding, (-) Rebound Musculoskeletal: (-) Edema Lymph: (-) Cervical adenopathy Neuro: Alert, Oriented x3 MENTAL STATUS EXAMINATION On ADMISSION: Appearance: Patient is a 18 y/o young male, appear stated age, multiple methamphetamine related skin sores and mites over his face, neck and arm, making limited eye contact, poor hygiene and grooming. Behavior: in fair control in the hospital Gait: normal Abnormal motor activity: none Speech: normal rate and rhythm, anxious pauses, normal tone and volume Mood: emotional Affect: Dysphoric, constricted Thought process: coherent to circumstantial Thought Content: Suicidal/Homicidal ideation: denied at the time of evaluation but as per recent evidence made suicidal statements Delusions: none Obsessions: none Phobia: none Perceptual disturbance: none Attention: fair Orientation: grossly intact Concentration: limited Memory: fair Insight: poor Judgment: poor Impulse control: poor DIAGNOSIS ON ADMISSION: Depressive Disorder unspecified, Anxiety Disorder unspecified, Opioid Use Disorder, Methamphetamine abuse Prov: Adjustment Disorder, Major depression, Substance Induced Depression and anxiety DIAGNOSIS ON DISCHARGE: Depressive Disorder unspecified, Anxiety Disorder unspecified, Opioid Use Disorder, Methamphetamine abuse Objective - Appearance Appearance: Healthy Appearing Dysmorphic Features: No Hygiene: Normal Grooming: Fairly Well Kept - Behavior Psychomotor Activities: Normal Exhibits Abnormal Movement: No - Attitude and Relatedness Attitude and Relatedness: Cooperative Eye Contact: Fair - Speech Quality: Unpressured Latencies: Normal Quantity: Appropriate - Mood Patient's Decription of Mood: "Fine" - Affect Observed Affect: Fair Affect Consistent with: Euthymia - with some anxiety - Thought Process Patient's Thought Process: Goal Directed Thought Content: No Passive Wish, No Suicidal Planning, No Homicidal Ideation, No Paranoid Ideation - Sensorium Experiencing Hallucinations: No, Sensorium is Clear Type of Hallucinations: Visual: No, Auditory: No, Command: No - Level of Consciousness Level of Consciousness: Alert Orientation: Yes Intact, Yes Orientated to Time, Yes Orientated to Place, Yes Orientated to Person - Impulse Control Impulse Control: Intact - Insight and Judgement Insight and Judgement: Fair - Group Participation Particating in Group Activities: Yes - Medication Management Medication Management Adherence: Yes Treatment Course & Assessment Clinical Course & Impression: Patient is 18 y/o male with history of Substance Use Disorder, Depression and anxiety. Patient currently admitted due to worsening of his depression, relapse on substance abuse including heroin and methamphetamine. Patient has also struggled with recent loss of his friend that has likely triggered relapse. Patient was a danger to self and others if discharged hence was stabilized on inpatient unit with medication adjustments and therapy. Patient was admitted to [facility] on Q 15 min observation. Patient was on involuntary admission status. Patient was integrated into the milieu, individual and group psychotherapy. Patient gave informed consent to start back on Suboxone but at a low dose 4-2 mg a day with plan to follow up with cravings and urges of opioids. Patient was also started on Remeron 15 mg PO QHS to help with depression and anxiety. With plan to obtain baseline lipid profile which came back with in normal limits. Safe ACT was filed while patient was in the hospital due to possession of fire arms and his suicidal statements. Also continued with Hydroxyzine 50 mg Q6HRS PRN for anxiety and Tylenol for Pain. Patient was monitored and followed up for improvement and side effects. Patient reports limited improvement in his craving, urges and withdrawal related symptoms from opioids. Patient endorsed continued feeling depressed, isolative and withdrawn with limited interest in things around him. Patient sleeping was disturbed with only 4 hours at night but has been erratic in his daily routine and was in his bed mostly. Patient eating was fair. Patient was cooperative with staff. Patient behavior was in control. Patient mood continued to be anxious and dysphoric and requested increment in Suboxone. Patient's medications were adjusted after informed consent with increment of Suboxone to 8 mg a day with intent to increase to 12 mg a day which was his outpatient dose as needed and tolerated. Patient was also continued on Remeron 15 mg PO HS for depression and sleep. Patient was having continued difficulty with sleep and requested increase in PRN Hydroxyzine. Patient was adherent with unit expectations and was given enhanced privileges, such as use of the computer and staff pass. Patient has been compliant with his medications other that he refused to take Suboxone after few days and stated that he wanted to "do it and go to rehab". Patient appeared to be in some what of withdrawal and offered low dose Buprenorphine one time today which he also refused. Patient was attending therapy and participating in milieu and more out of room than before. Patient endorsed continued disturbance in sleep and fluctuating depression and anxiety, less isolative and seclusive. Patient denies any suicidal ideation and behavior has been safe on all checks. Patient's Remeron was increased to 30 mg PO HS for depression, anxiety and sleep. Patient also educated about sleep hygiene. Patient reports worsening in racing thoughts after increment in Remeron and was unable to fall asleep. Patient was anxious and restless this morning but continued to report improvement in depression. Patient's medications were adjusted after informed consent with reduction in Remeron back to 15 mg PO HS for depression. anxiety and sleep. Patient was started on Seroquel 100 mg HS to address sleep and racing thoughts. Patient continued to be motivated to attend rehab and team was working on referrals to inpatient rehab. Patient depression and anxiety improved and was feeling ready to go to inpatient rehab but sleep was still disturbed and Seroquel was increased to 150 mg HS which and sleep hygiene educations was helpful with his sleep. Patient mood was stable, not psychotic, not manic, denied si/hi, anxiety and depression improved, behavior in control, not a danger to self and others, taking care of self. Patient was motivated to attend inpatient rehab and was discharged with family to go to inpatient rehab for substance use treatment. Merits Inpatient Hospitalization: No Clear for Discharge: Adequate Clinical Respons, Acceptable Safety Profile, Low Utility of Inpt Care Inpatient DSM-V Dx: F33.8 Discharge Planning - Discharge Planning Discharge Plan: Drug/Alcohol Rehab Medications: Current Medications Acetaminophen (Tylenol Tab*) 650 mg PO Q4H PRN PRN Reason: PAIN or TEMP > 101 F Al Hydrox/Mg Hydrox/Simethicone (Maalox Plus*) 30 ml PO Q4H PRN PRN Reason: INDIGESTION Bacitracin (Bacitracin Ointment*) 1 applic TOPICAL BID [facility] Last Admin: 03/19/18 10:24 Dose: Not Given Device (Nicotine Mouth Piece*) 1 each INH .CARTRIDGE [facility] Hydroxyzine HCl (Atarax Tab*) 75 mg PO Q6H PRN PRN Reason: ANXIETY Last Admin: 03/18/18 20:35 Dose: 75 mg Mirtazapine (Remeron Tab*) 15 mg PO BEDTIME [facility] Last Admin: 03/18/18 20:34 Dose: 15 mg Multivitamins (Theragran Tab*) 1 tab PO DAILY [facility] Last Admin: 03/19/18 10:24 Dose: Not Given Nicotine (Nicotine Inhaler*) 10 mg INH Q2H PRN PRN Reason: CRAVING Last Admin: 03/15/18 19:49 Dose: 10 mg Nicotine Polacrilex (Nicotine Gum*) 2 mg PO Q2H PRN PRN Reason: CRAVING Quetiapine Fumarate (Seroquel Tab*) 150 mg PO BEDTIME [facility] Discharge Planning: Prescriptions provided for discharge [x] Yes [] No Follow up care details as per social work arrangements. Patient response to discharge plan: [x] eager for discharge [] agreeable with discharge plan [] ambivalent about discharge [] disagrees with discharge today
[2018-03-19] MEDS: Mirtazapine TAB* 15 MG PO SCH (20:19)
[2018-03-19] MEDS: hydrOXYzine HCL TAB* 25 MG PO PRN (20:21)
[2018-03-19] MEDS ORDERED: QUEtiapine TAB* 100 MG PO SCH (21:00)
[2018-03-20 07:44] VITALS: BP 138/72
== END 2018-03-20 08:02 | disposition home or self-care (01) | DRG 753 ==
LOC: ED 17:03 → BSU 21:00 → ED 22:39 → BSU 03-13 02:31
PROVIDERS: ADMIT Psychiatry & Neurology Psychiatry; ATTEND Psychiatry & Neurology Psychiatry
DX: F33.8 Other recurrent depressive disorders (principal); R45.851 Suicidal ideations; F41.9 Anxiety disorder, unspecified; F11.90 Opioid use, unspecified, uncomplicated; F43.20 Adjustment disorder, unspecified; F17.210 Nicotine dependence, cigarettes, uncomplicated; F15.10 Other stimulant abuse, uncomplicated; Z91.030 Bee allergy status; Z81.8 Family history of other mental and behavioral disorders; Z81.1 Family history of alcohol abuse and dependence
CPT/HCPCS: 36415; 80053; 80061; 80307; 80320; 80329; 81003; 83036; 84443; 85025; 99222; 99231; 99238; 99284; A9270-GY; G0480